=== PATIENT | female | born 1930 | race Caucasian/White ===

== ENCOUNTER 2016-11-09 14:40 | Inpatient (IN) ==
--- NOTE | 2016-11-09 15:21 | PROVIDER DOCUMENTATION ---
HPI-General Adult - General Chief Complaint: Weakness Stated Complaint: WEAKNESS Time Seen by Provider: 11/09/16 15:15 Source: patient, family Allergies/Adverse Reactions: Patient Allergies Allergy/AdvReac Type Severity Reaction Status Date / Time aspirin Allergy Unknown Verified 11/06/16 17:32 famotidine [From Pepcid] Allergy Unknown Verified 11/06/16 17:32 ketorolac tromethamine * Allergy Unknown Verified 11/06/16 17:32 [From Toradol] levofloxacin [From Levaquin] Allergy Unknown Verified 11/06/16 17:32 morphine Allergy RASH Verified 11/06/16 17:32 nalbuphine HCl * Allergy Unknown Verified 11/06/16 17:32 [From Nubain] Penicillins Allergy RASH Verified 11/06/16 17:32 prochlorperazine edisylate * Allergy Unknown Verified 11/06/16 17:32 [From Compazine] prochlorperazine maleate * Allergy Unknown Verified 11/06/16 17:32 [From Compazine] Sulfa (Sulfonamide Allergy Unknown Verified 11/06/16 17:32 Antibiotics) Home Medications: Home Medication List Medication Instructions Recorded Confirmed Last Taken Type Clonazepam [Klonopin] 1 mg PO BID 07/02/14 11/06/16 11/06/16 08:00 History Omeprazole [Prilosec] 40 mg PO DAILY 07/02/14 11/06/16 11/06/16 07:00 History Quetiapine Fumarate [Seroquel] 50 mg PO QHS 07/02/14 11/06/16 11/05/16 20:00 History Hydrocodone/Acetaminophen [[place] 1 each PO DAILY 05/08/15 11/06/16 11/06/16 08: 00 History 7.5-325 Tablet] Cyclobenzaprine [Flexeril] 10 mg PO TID PRN #20 tablet 11/06/16 Unknown Rx Gabapentin [Gabapentin] 300 mg PO BID 11/06/16 11/06/16 11/06/16 08:00 History Levothyroxine [Synthroid] 50 microgm PO DAILY 11/06/16 11/06/16 11/06/16 08:00 History - History of Present Illness -Gen Adult Location of Pain/Injury: reports: generalized Quality of Pain: reports: aching Severity: reports: moderate Onset/Duration: reports: gradual, 1 week ago Timing: reports: still present, constant Context/Activities at Onset: reports: none Modifying Factors: worse with: movement Associated Symptoms: reports: fatigue, malaise, muscle aches, weakness, trouble walking. denies: back/neck pain, chest pain, cough, shortness of breath, vomiting Similar Symptoms Previously?: Yes Recently seen or treated by another doctor?: Yes Past History - Adult - PAST MEDICAL HISTORY-ADULT Major Childhood Illnesses: reports: denies history Cardiovascular: reports: [place] Respiratory: reports: denies history Gastrointestinal: reports: GERD Obstetrical/Gynecological: reports: denies history Genitourinary: reports: denies history Musculoskeletal: reports: denies history Neurological: reports: Seizures/Epilepsy Endocrine/Immune: reports: thyroid disorder (hypo) Other Conditions: reports: denies history - PRIOR SURGERIES/PROCEDURES Surgical/Procedure History: reports: cholecystectomy, hysterectomy, orthopedic ( extremity) (Shoulder), other (ERCP 4 months ago) - PRIOR HOSPITALIZATIONS Prior Hospitalizations: reports: for other non-related - IMMUNIZATION STATUS Childhood Immunizations: See Nurse Assessment Flu Vaccine: See Nurse Assessment - FAMILY HISTORY Family History: reviewed, not pertinent Progress - PLAN OF CARE/RESULTS Progress/Plan/Lab Results: Vital Signs - 8 hr 11/09/16 14:46 Temperature 98.0 F Pulse Rate 85 Respiratory Rate 18 Blood Pressure 126/87 O2 Sat by Pulse Oximetry 97 Departure - Departure Referrals and Follow-Ups: Marcial Pierre DO [Primary Care Provider] -
--- NOTE | 2016-11-09 16:38 | PROVIDER DOCUMENTATION ---
HPI-General Adult - General Chief Complaint: Weakness Stated Complaint: WEAKNESS Time Seen by Provider: 11/09/16 15:15 Source: patient, family Allergies/Adverse Reactions: Patient Allergies Allergy/AdvReac Type Severity Reaction Status Date / Time aspirin Allergy Unknown Verified 11/06/16 17:32 famotidine [From Pepcid] Allergy Unknown Verified 11/06/16 17:32 ketorolac tromethamine * Allergy Unknown Verified 11/06/16 17:32 [From Toradol] levofloxacin [From Levaquin] Allergy Unknown Verified 11/06/16 17:32 morphine Allergy RASH Verified 11/06/16 17:32 nalbuphine HCl * Allergy Unknown Verified 11/06/16 17:32 [From Nubain] Penicillins Allergy RASH Verified 11/06/16 17:32 prochlorperazine edisylate * Allergy Unknown Verified 11/06/16 17:32 [From Compazine] prochlorperazine maleate * Allergy Unknown Verified 11/06/16 17:32 [From Compazine] Sulfa (Sulfonamide Allergy Unknown Verified 11/06/16 17:32 Antibiotics) Home Medications: Home Medication List Medication Instructions Recorded Confirmed Last Taken Type Clonazepam [Klonopin] 1 mg PO BID 07/02/14 11/06/16 11/06/16 08:00 History Omeprazole [Prilosec] 40 mg PO DAILY 07/02/14 11/06/16 11/06/16 07:00 History Quetiapine Fumarate [Seroquel] 50 mg PO QHS 07/02/14 11/06/16 11/05/16 20:00 History Hydrocodone/Acetaminophen [[place] 1 each PO DAILY 05/08/15 11/06/16 11/06/16 08: 00 History 7.5-325 Tablet] Cyclobenzaprine [Flexeril] 10 mg PO TID PRN #20 tablet 11/06/16 Unknown Rx Gabapentin [Gabapentin] 300 mg PO BID 11/06/16 11/06/16 11/06/16 08:00 History Levothyroxine [Synthroid] 50 microgm PO DAILY 11/06/16 11/06/16 11/06/16 08:00 History - History of Present Illness -Gen Adult Nature of Presenting Problems: patient is a 86 y/o f that presents with generalized weakness and muscle aches x 1 week. patient's daughter reports patient hasn't walked in 3 days. patient was seen at [facility] a few days. patient's daughter wants her into rehab. Pt has mild hip OA but is unable to ambulate and get out of bed for the last 3 days. The family is unable to cope with her at home. Location of Pain/Injury: reports: generalized Quality of Pain: reports: aching Severity: reports: moderate Onset/Duration: reports: gradual, 1 week ago Timing: reports: still present, getting worse Context/Activities at Onset: reports: none Modifying Factors: worse with: movement Associated Symptoms: reports: muscle aches, weakness, trouble walking. denies: chest pain, fever/chills, genitourinary problems, nausea, shortness of breath Similar Symptoms Previously?: Yes Recently seen or treated by another doctor?: Yes Review of Systems - Adult - REVIEW OF SYSTEMS - ADULT Constitutional: denies: chills, fever Eyes: reports: no symptoms reported Ears, Nose, Mouth & Throat: reports: no symptoms reported Cardiovascular: denies: chest pain, orthopnea, palpitations Respiratory: denies: cough, shortness of breath, wheezing Gastrointestinal: denies: abdominal pain, diarrhea, nausea, vomiting Genitourinary: reports: no symptoms reported Musculoskeletal: reports: muscle aches, muscle weakness Integumentary: reports: no symptoms reported Neurological: denies: dizziness/vertigo, headache/migraines Psychiatric: reports: no symptoms reported Endocrine: reports: no symptoms reported Hematologic/Lymphatic: reports: no symptoms reported Allergic/Immunologic: reports: no symptoms reported All Other Systems: Reviewed and Negative Past History - Adult - PAST MEDICAL HISTORY-ADULT Review of Records: reports: Old Records Reviewed, Nursing Assessment Review, Medications Reviewed Cardiovascular: reports: [place] Gastrointestinal: reports: GERD Neurological: reports: Seizures/Epilepsy Endocrine/Immune: reports: thyroid disorder (hypo) Other Conditions: reports: denies history - PRIOR SURGERIES/PROCEDURES Surgical/Procedure History: reports: cholecystectomy, hysterectomy, orthopedic ( extremity) (Shoulder), other (ERCP 4 months ago) - PRIOR HOSPITALIZATIONS Prior Hospitalizations: reports: for other non-related - IMMUNIZATION STATUS Childhood Immunizations: See Nurse Assessment Flu Vaccine: See Nurse Assessment - FAMILY HISTORY Family History: reviewed, not pertinent - SOCIAL HISTORY Smoking: non-smoker Alcohol Use Frequency: occasionally Living Situation: family Physical Exam-General - PHYSICAL EXAM-ADULT Initial Vital Signs Reviewed: Yes - CONSTITUTIONAL General Appearance: alert, no apparent distress - EYES Eyes: PERRL/EOMI, pink conjunctivae - HEAD, EARS, NOSE, MOUTH & THROAT HENMT: normocephalic/atraumatic, moist mucous membranes, normal ENT inspection - NECK Neck: full range of motion, normal inspection - RESPIRATORY Respiratory: lungs clear, normal breath sounds, no respiratory distress, no accessory muscle use - CARDIOVASCULAR Cardiovascular: normal peripheral pulses, regular rate, rhythm, no edema, no murmur - GASTROINTESTINAL (ABDOMEN) Abdominal Exam: normal bowel sounds, non tender, soft - MUSCULOSKELETAL Back Exam: other (painful NAI of both hips) Extremity: no pedal edema, normal capillary refill, pelvis stable - SKIN Integumentary: normal color, warm/dry - NEUROLOGIC 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, no motor/sensory deficits - PSYCHIATRIC Psych/Mental Status: normal mood/affect, normal thought content, normal thought process, oriented x 3 Progress - PLAN OF CARE/RESULTS Progress/Plan/Lab Results: Vital Signs - 8 hr 11/09/16 14:46 Temperature 98.0 F Pulse Rate 85 Respiratory Rate 18 Blood Pressure 126/87 O2 Sat by Pulse Oximetry 97 Orders Category Date Time Status Cardiac Monitoring DIRECTED Care 11/09/16 15:48 Active Saline Loc NOW Care 11/09/16 15:48 Active CBC WITH ELECTRONIC DIFF [HEME] Stat Lab 11/09/16 15:48 Ordered CK PROFILE [SP CHEM] Stat Lab 11/09/16 15:48 Ordered COMPREHENSIVE METABOLIC PANEL [CHEM] Stat Lab 11/09/16 15:48 Ordered MAGNESIUM [CHEM] Stat Lab 11/09/16 15:48 Ordered PRO B-NATRIURETIC PEPTIDE Stat Lab 11/09/16 15:[address] Or[address]IME WITH INR PL [COAG] Stat Lab 11/09/16 15:[address] [COAG] Stat Lab 11/09/16 15:48 Ordered TROPONIN T Stat Lab 11/09/16 15:[address] W/POSS RFLX CULT [URINALYSIS] Stat Lab 11/09/16 15:48 Uncollected EKG [EKG] Stat Ther 11/09/16 15:48 Ordered Result Diagrams: 11/09/16 16:31 11/09/16 16:31 - CONSULTS/PCP/HOSPITALIST Notification #1 *Consult/PCP/Hospitalist*: Dr Oconnor/ hospitalist at [place]- no beds at [place] [facility] Time Discussed: 20:37 Consult Disposition: Admit Departure - Departure Date of Disposition Decision: 11/09/16 Time of Disposition Decision: 20:37 DIAGNOSIS: [place] Disposition: ADMITTED INPATIENT 09 Certified Medical Emergency: Emergent Condition: Stable Referrals and Follow-Ups: Marcial Pierre DO [Primary Care Provider] - - Critical Care Note This patient required my direct & personal management of CC.: No Attestation - Physician/ ADRIENNE Attestation The physician spent face to face time with patient:: Yes Advanced Practice Provider documentation review:: Supervising physician onsite and consulted in the evaluation and care of this patient. The physician did have a face to face encounter with the patient.
[2016-11-09 16:41] LABS: MANUAL DIFF NEEDED? NO
[2016-11-09 16:44] LABS: BASO% 0.4 % (0.0-0.8); EOS% 1.5 % (0.0-10.0); HEMATOCRIT 42.9 % (37.0-47.0); HEMOGLOBIN 14.5 g/dL (12.0-16.0); IMM GRAN# 0.01 X1000 (0.0-0.04); IMM GRAN% 0.1 % (0.0-0.5); LYMPH# 2.15 X1000 (1.2-3.4); LYMPH% 31.8 % (20.5-51.1); MCH 31.9 PG (27-31); MCHC 33.8 g/dL (33-37); MCV 94.3 FL (81-99); MONO% 7.4 % (1.7-9.3); NEUT% 58.8 % (42.2-75.2); PLT 238 X1000 (130-400); RBC 4.55 XMIL (4.2-5.4)
[2016-11-09 17:02] LABS: INR 0.85 (0.86-1.15); PROTIME 12.3 Seconds (12.1-15.5)
[2016-11-09 17:03] LABS: PTT PL 26.9 Seconds (22.6-43.9)
[2016-11-09 17:05] LABS: BILIRUBIN URINE NEGATIVE (NEGATIVE); BLOOD URINE NEGATIVE (NEGATIVE); CLARITY CLEAR (CLEAR); COLOR YELLOW; GLUCOSE URINE NEGATIVE (NEGATIVE); LEUKOCYTES URINE NEGATIVE (NEGATIVE); NITRITE URINE NEGATIVE (NEGATIVE); PROTEIN URINE NEGATIVE (NEGATIVE); UROBILINOGEN URINE NORMAL
[2016-11-09 17:11] LABS: URINE CAST NONE SEEN /LPF; URINE CRYSTAL NONE SEEN /HPF; URINE CULTURE PL NEEDED? YES; URINE EPITHELIAL CELLS <10 /HPF (<10); URINE RBC <10 /HPF (<10); URINE SOURCE CLEAN CATCH; URINE WBC <10 /HPF (<10)
[2016-11-09 17:12] LABS: AGAP 16; ALBUMIN 4.1 g/dL (3.5-5.0); ALKALINE PHOSPHATASE 92 U/L (32-104); BUN 13 mg/dL (8-22); CALCIUM 9.6 mg/dL (8.8-10.2); CHLORIDE 99 mmol/L (98-107); COSMO 275; GOT 39 U/L (10-30); GPT 28 U/L (10-36); MAGNESIUM 2.1 mg/dL (1.5-2.7); POTASSIUM 3.7 mmol/L (3.5-5.1); SODIUM 138 mmol/L (136-145); TCO2 23 mmol/L (25-35); TOTAL PROTEIN 7.4 g/dL (6.3-8.3)
[2016-11-09 17:14] LABS: CK PROFILE 322 U/L (24-173)
[2016-11-09 17:41] LABS: CK INDEX 2.4 (0.0-2.5); CK-MB 7.61 ng/mL (0.0-5.0)
[2016-11-09] MEDS ORDERED: TYLENOL PO ONE (17:51)
--- NOTE | 2016-11-09 19:05 | EKG Report ---
Test Performed on : 11/09/2016 5:06:03 PM Test Reason : CHEST PAIN Blood Pressure : / mmHG Vent. Rate : 081 BPM Atrial Rate : 081 BPM P-R Int : 178 ms QRS Dur : 090 ms QT Int : 374 ms P-R-T Axes : 058 -46 052 degrees QTc Int : 434 ms Normal sinus rhythm. with sinus arrhythmia. Left anterior fascicular block Abnormal ECG When compared with ECG of 15-AUG-2015 13:43, No significant change was found Unconfirmed Result
[2016-11-10] MEDS ORDERED: PNEUMOVAX 23 IM ONE (05:09)
[2016-11-10] MEDS ORDERED: KLONOPIN PO PRN (10:24)
[2016-11-10] MEDS: NORCO-7.5 PO PRN ×3 (11:29→20:47)
[2016-11-10] MEDS: SOLU-MEDROL IV SCH ×2 (11:29→22:23)
[2016-11-10] MEDS: KEFZOL 1 GM/D5W 1 GM/50 ML IVPB IV SCH ×2 (13:55→20:38)
[2016-11-10] MEDS ORDERED: NORCO-7.5 PO SCH (14:00)
[2016-11-10] MEDS ORDERED: BLISTEX MEDICATED BERRY LIP BALM TOP PRN (14:44)
--- NOTE | 2016-11-10 14:46 | HISTORY AND PHYSICAL ---
CHIEF COMPLAINT: Generalized weakness and muscle aches x1 week, nonambulatory for 3 days. HISTORY OF PRESENT ILLNESS: This is an 86-year-old female who presented to the emergency room with family members via EMS, complaining of generalized muscle aches and weakness for a week. She has been nonambulatory for the last 3 days. In fact, she was seen at [facility]'s Emergency Room on 11/06/2016 stating she felt like she had a fever, having right lower quadrant pain and nausea with decreased appetite. At that time, she was seen and discharged with the diagnosis of acute exacerbation of chronic back pain and given Flexeril with her home medications. The daughter states that she has continued to get weak and in fact lost her appetite over the last 2 days. In the emergency room, labs were drawn as well as urine collected, and she was admitted for further evaluation and treatment. PAST MEDICAL HISTORY: Hypothyroidism, hyperlipidemia, anxiety, depression, gastroesophageal reflux disease, degenerative disk disease. PAST SURGICAL HISTORY: Cholecystectomy, hysterectomy, ERCP and bladder surgery. SOCIAL HISTORY: She is and retired. She has children that live close and are active in her care. Denies any history of alcohol, tobacco or illicit drug use. FAMILY HISTORY: Positive for hypertension. Both parents are . ALLERGIES: Aspirin, Pepcid, Toradol, Levaquin, Nubain, Compazine and sulfa antibiotics, all with unknown reaction. Morphine and penicillin cause a rash. HOME MEDICATIONS: A list will be obtained by the nursing staff. REVIEW OF SYSTEMS: A 14-point review of systems was discussed with the patient with pertinent positives being generalized body aches and generalized body weakness, anorexia, difficulty walking, increase in low back pain. She denied chest pain, palpitations, dizziness, syncope, any cough, known fever, PND, orthopnea, FRANCO, nausea, vomiting, diarrhea, constipation, black or bloody vomitus, black or bloody stools. PHYSICAL EXAMINATION: GENERAL: This is an 86-year-old female who is lying in bed with no distress. VITAL SIGNS: Blood pressure is 143/71 with heart rate of 85, respirations 18, temperature 97.7 oral with room air saturations of 96% to 100%. CARDIOVASCULAR: Regular rate and rhythm. S1 and S2 are appreciated. PULMONARY: Breath sounds are clear with no increased work of breathing noted. Chest does rise and fall symmetrically with respiration. GASTROINTESTINAL: Abdomen is soft, nontender and nondistended with bowel sounds in all 4 quadrants. EXTREMITIES: No cyanosis, clubbing or edema. Calves are nontender. Pulses are palpable x4. SKIN: Warm and dry with no rashes or lesions noted. NEUROLOGICAL: She is alert and oriented x3. DIAGNOSTIC DATA: WBC is 6.7 with hemoglobin of 14.5, hematocrit 42.9 and platelets 238. Sodium is 138, potassium 3.7, BUN is 13, creatinine 0.5 with glucose of 86. Troponins are negative. TSH is 1.10. Urinalysis is essentially negative. ASSESSMENT: 1. Urinary tract infection with gram-negative rods. 2. Generalized weakness. 3. Failure to thrive. 4. Hypothyroidism. 5. Gastroesophageal reflux disease. PLAN: Ms. Anand has been admitted to the hospital. Blood cultures and urine cultures have been obtained. Urine culture did return gram-negative at present. As she is allergic to sulfa, penicillin and Levaquin with unknown reactions, we will start Kefzol as the patient has taken Keflex in the past and did well with this. Further antibiotics will be culture driven. We will identify her home medications and continue as appropriate. We will consult Physical Therapy. We will decrease her Klonopin from 1 to 0.5 in the morning with 1 mg at night. Further treatments pending hospital course. Dictated by JACINTA Payne for Rm Oconnor MD cc: JACINTA Payne MD
[2016-11-10] MEDS: SEROQUEL PO SCH (20:37)
[2016-11-10] MEDS: NEURONTIN PO SCH (20:37)
[2016-11-10] MEDS: KLONOPIN PO SCH (20:37)
[2016-11-11] MEDS: NORCO-7.5 PO PRN ×4 (02:32→21:50)
[2016-11-11] MEDS: KEFZOL 1 GM/D5W 1 GM/50 ML IVPB IV SCH ×3 (04:26→21:33)
[2016-11-11] MEDS: SYNTHROID PO SCH (06:27)
[2016-11-11] MEDS: PRILOSEC PO SCH (06:27)
[2016-11-11 06:48] LABS: HEMATOCRIT 40.4 % (37.0-47.0); HEMOGLOBIN 13.8 g/dL (12.0-16.0); MCH 31.4 PG (27-31); MCHC 34.2 g/dL (33-37); MPV 10.5 FL (7.4-10.4); RBC 4.39 XMIL (4.2-5.4)
[2016-11-11 06:54] LABS: AGAP 14; ALKALINE PHOSPHATASE 85 U/L (32-104); BUN 14 mg/dL (8-22); CALCIUM 9.3 mg/dL (8.8-10.2); CHLORIDE 105 mmol/L (98-107); COSMO 282; GOT 47 U/L (10-30); GPT 29 U/L (10-36); POTASSIUM 3.6 mmol/L (3.5-5.1); SODIUM 139 mmol/L (136-145); TCO2 21 mmol/L (25-35); TOTAL PROTEIN 7.2 g/dL (6.3-8.3)
[2016-11-11] MEDS: NEURONTIN PO SCH ×2 (09:27→21:32)
[2016-11-11] MEDS: KLONOPIN PO SCH ×2 (09:27→21:32)
[2016-11-11] MEDS: SOLU-MEDROL IV SCH ×2 (09:32→21:51)
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
[2016-11-11] MEDS: SEROQUEL PO SCH (21:32)
[2016-11-12] MEDS: NORCO-7.5 PO PRN ×5 (02:12→23:51)
[2016-11-12] MEDS: KEFZOL 1 GM/D5W 1 GM/50 ML IVPB IV SCH ×3 (04:30→20:07)
[2016-11-12] MEDS: PRILOSEC PO SCH (06:42)
[2016-11-12] MEDS: SYNTHROID PO SCH (06:42)
--- NOTE | 2016-11-12 08:12 | PROGRESS NOTE ---
DATE: 11/12/2016 SUBJECTIVE: The patient without any new complaints. States that she is having some upper respiratory congestion and cough. Denies any fevers or chills. Denies any dysuria or frequency. Denies any GI or issues otherwise. OBJECTIVE: Vital signs: Temp 98, pulse 95, respiratory rate 18, BP 128/76. General: Patient awake alert, oriented. She is currently in no respiratory distress. Neck: Supple. No JVD. CV: Regular rate. Chest: Clear. Abdomen: Soft. Extremities: Moves all extremities. Neurologic: No changes. ASSESSMENT: 1. Urinary tract infection with gram-negative rods. Continue antibiotics until culture returns. 2. Generalized weakness. Continue physical therapy. 3. Failure to thrive. 4. Hypothyroidism. 5. Metabolic encephalopathy secondary to urinary tract infection. 6. Gastroesophageal reflux. PLAN: We will continue patient on antibiotics. Continue physical therapy. Certainly, expect that she is going to need rehab on discharge. We will continue to follow. cc: Rm Oconnor MD
[2016-11-12] MEDS: NEURONTIN PO SCH ×2 (08:51→20:07)
[2016-11-12] MEDS: KLONOPIN PO SCH ×2 (08:51→20:07)
[2016-11-12] MEDS: SOLU-MEDROL IV SCH ×2 (10:59→22:24)
[2016-11-12] MEDS: SEROQUEL PO SCH (20:06)
[2016-11-13] MEDS: KEFZOL 1 GM/D5W 1 GM/50 ML IVPB IV SCH ×2 (04:03→12:41)
[2016-11-13] MEDS: NORCO-7.5 PO PRN ×3 (05:34→13:41)
[2016-11-13] MEDS: PRILOSEC PO SCH (06:03)
[2016-11-13] MEDS: SYNTHROID PO SCH (06:04)
[2016-11-13] MEDS: NEURONTIN PO SCH (09:36)
[2016-11-13] MEDS: KLONOPIN PO SCH (09:36)
[2016-11-13] MEDS: SOLU-MEDROL IV SCH (09:36)
[2016-11-13 11:03] VITALS: BP 135/74
--- NOTE | 2016-11-13 11:56 | Diag Imaging Result Doc PS360 ---
CHEST-PORTABLE - 11/13/2016 INDICATION: REHAB PLACEMENT TECHNIQUE: COMPARISON: 11/06/2016 FINDINGS: Lung volumes are very low. No focal infiltrates, pneumothorax, or pleural effusion. Heart size and pulmonary vascularity is normal. Stable scattered calcified granulomas throughout the lungs bilaterally. IMPRESSION: No acute disease. Electronically signed by Johny Calhoun 11/13/2016 11:54 AM
--- NOTE | 2016-11-13 12:00 | DISCHARGE SUMMARY ---
ADMISSION DATE: 11/09/2016 DISCHARGE DATE: 11/13/2016 PRIMARY CARE PHYSICIAN: Marcial Pierre DO. ADMISSION DIAGNOSES: 1. Urinary tract infection with gram-negative rods. 2. Generalized weakness. 3. Failure to thrive. 4. Hypothyroidism. 5. Gastroesophageal reflux disease. DISCHARGE DIAGNOSES: 1. Klebsiella pneumoniae urinary tract infection. 2. Generalized weakness. 3. Failure to thrive. 4. Hypothyroidism. 5. Gastroesophageal reflux disease. SUMMARY OF FINDINGS: This is an 86-year-old female, who presented to the emergency room with complaints of generalized muscle aches and weakness for 1 week. Had been nonambulatory for at least the last 3 days prior to arriving to the emergency room. She had been seen at [facility]'s emergency room on 11/06/2016, after she fell like she has had a subjective fever and right lower quadrant abdominal pain with nausea and a decreased appetite. She was discharged home with an acute exacerbation of chronic back pain and given Flexeril with her home meds. Her daughter stated that she has continued to get weak and in fact, had lost her appetite over the last 2 days prior to arriving. Her workup in the ER showed, by her urine culture, that showed a Klebsiella pneumoniae. She was placed on IV antibiotics. She has received physical therapy and now that we know for sure by her urine culture, that is being treated appropriately, it is felt that she can safely be discharged to rehab today. DISCHARGE MEDICATIONS: Keflex 500 mg p.o. b.i.d. for 7 days, Seroquel 50 mg p.o. at bedtime, Prilosec 40 mg p.o. daily, Synthroid 50 mcg p.o. daily, Flexeril 10 mg p.o. 3 times a day p.r.n., Klonopin at 1 mg p.o. b.i.d., gabapentin 300 mg p.o. b.i.d., and hydrocodone 7.5 one p.o. q.6 hours p.r.n. FOLLOWUP: She will follow up with her primary care physician once her rehab stay is completed. All discharge instructions have been reviewed with the patient, and she verbalized understanding. TIME SPENT: 35 minutes. Dictated by JACINTA Diallo for Anup Canela MD cc: JACINTA Diallo MD Thomas E. Lockard, DO
--- NOTE | 2016-11-15 08:30 | DISCHARGE SUMMARY ---
ADMISSION DATE: 11/09/2016 DISCHARGE DATE: 11/13/2016 ADDENDUM: The patient was seen and examined by me [id number]. All the lab work, vital signs, and the images were reviewed. This patient was admitted secondary to urinary tract infection and generalized weakness. Because of that, this patient will be discharged to a rehab center. She needs to complete antibiotics for at least 10 days and we will continue treating this patient with her home medications. She needs to followup with her primary care physician once she is done with the rehab center treatment. At the time of discharge this patient was in a stable medical condition, tolerating p.o., but she continues to have generalized weakness. cc: Anup Canela MD
== END 2016-11-13 14:44 ==
LOC: P.MEDSURG 14:40 → P.ED 14:40 → SUATTDRO 20:53 → OBSVTOIN 20:53
PROVIDERS: ATTEND Internal Medicine